=== PATIENT | male | born 1970 | race Caucasian/White ===

== ENCOUNTER 2018-02-10 14:41 | Day surgery (SDC) | payer OTHER ==
[~2018-02-10] VITALS: Ht 185.4 cm; Wt 104.3 kg
[2018-02-10] MEDS ORDERED: AMIT25 PO (16:03)
== END 2018-02-10 21:25 | disposition home or self-care (01) ==
LOC: ER 14:41 → SURS 14:42 → ORSCMMR 14:42 → SURS 14:42 → ORSCMMR 21:25 → SURS 21:25
PROVIDERS: Surgery
PROC: 0KCR0ZZ Extirpation of Matter from Left Upper Leg Muscle, Open Approach (ICD-10-PCS; principal; 2018-02-10 16:00)
PROC: 0YQD0ZZ Repair Left Upper Leg, Open Approach (ICD-10-PCS; 2018-02-10 16:00)
DX: S71.142A Puncture wound with foreign body, left thigh, initial encounter (principal); Z98.890 Other specified postprocedural states; Z88.5 Allergy status to narcotic agent; W45.8XXA Other foreign body or object entering through skin, initial encounter
CPT/HCPCS: 73560-LT; 96374; 96375; 99285; J0690; J1100; J1170; J1885; J2060; J2250; J2405; J3010

== ENCOUNTER 2021-04-11 14:24 | Emergency (ER) | payer OTHER ==
[~2021-04-11] VITALS: Ht 195.6 cm; Wt 120.2 kg
[~2021-04-11 14:24] MED LIST changes: -ONDA4ODT MM; -Percocet 10-321 EACH PO
[2021-04-11 14:54] LABS: BASOPHILS ABSOLUTE AUTO 0.03 K/mm3 (0.00-0.23); BASOPHILS PERCENT AUTO 0 % (0-2); EOSINOPHILS ABSOLUTE AUTO 0.03 K/mm3 (0.00-0.68); EOSINOPHILS PERCENT AUTO 0 % (0-6); Hemoglobin 13.8 g/dL (13.5-17.5); IMMATURE GRAN ABSOLUTE AUTO 0.03 K/mm3 (0.00-0.10); IMMATURE GRAN PERCENT AUTO 0 % (0-1); LYMPHOCYTES PERCENT AUTO 9 % (21-46); MONOCYTES ABSOLUTE AUTO 1.46 K/mm3 (0.16-1.47); MONOCYTES PERCENT AUTO 15 % (4-13); Mean Corpuscular HGB 31.2 pg (26.0-34.0); Mean Corpuscular HGB Conc 34.5 g/dL (31.5-36.5); Mean Corpuscular Volume 91 fL (80-100); Mean Platelet Volume 9.3 fL (9.1-12.4); NEUTROPHILS ABSOLUTE AUTO 7.46 K/mm3 (1.96-9.15); NEUTROPHILS PERCENT AUTO 75 % (41-73); Platelet Count 270 K/mm3 (150-400); RDW Coefficient Variation 11.9 % (11.7-14.2); RDW Standard Deviation 39.5 fL (35.1-46.3); Red Blood Cell Count 4.42 M/mm3 (4.30-5.90); White Blood Cell Count 9.91 K/mm3 (4.00-11.30)
[2021-04-11 15:15] LABS: Alanine Aminotransfer (ALT/SGP 28 U/L (12-78); Albumin, Blood 3.8 g/dL (3.4-5.0); Alk Phos 102 U/L (50-136); Anion Gap 6 mmol/L (6-16); Aspartate Aminotrans (AST/SGOT 22 U/L (12-37); Bilirubin, Total 0.6 mg/dL (0.1-1.0); Blood Urea Nitrogen 14 mg/dL (8-24); Bun/Creatinine Ratio 13.6 (12.0-20.0); CO2, Blood 24 mmol/L (21-32); Calcium, Blood 8.5 mg/dL (8.5-10.1); Chloride, Blood 103 mmol/L (98-108); Creatinine, Blood 1.03 mg/dL (0.60-1.20); Globulin, Blood 3.8 g/dL (2.2-4.0); Glomerular Filtration Rate >60 (60-); Glucose, Blood 122 mg/dL (70-99); Potassium, Blood 3.9 mmol/L (3.5-5.5); Sodium, Blood 133 mmol/L (136-145); Total Protein, Blood 7.6 g/dL (6.4-8.2)
[2021-04-11] MEDS ORDERED: ONDA4ODT MM (16:40)
[2021-04-11] MEDS ORDERED: Percocet 10-321 EACH PO (16:40)
== END 2021-04-11 16:50 | disposition home or self-care (01) ==
LOC: ER 14:24
PROVIDERS: Emergency Medicine
DX: R51.9 Headache, unspecified (principal); R50.9 Fever, unspecified; Z88.6 Allergy status to analgesic agent; Z88.5 Allergy status to narcotic agent
CPT/HCPCS: 71045; 80053; 85025; 93005; 93010; 96374; 99285-25; J2405

== ENCOUNTER → 2021-04-11 | Outpatient (CLI) | payer OTHER ==
[~2021-04-11] MED LIST: AMIT25 PO; ONDA4ODT MM; Percocet 10-321 EACH PO
[2021-04-11 13:42] LABS: BASOPHILS ABSOLUTE AUTO 0.03 K/mm3 (0.00-0.23); BASOPHILS PERCENT AUTO 0 % (0-2); EOSINOPHILS ABSOLUTE AUTO 0.04 K/mm3 (0.00-0.68); EOSINOPHILS PERCENT AUTO 1 % (0-6); Hematocrit 39.4 % (37.0-53.0); Hemoglobin 13.8 g/dL (13.5-17.5); IMMATURE GRAN ABSOLUTE AUTO 0.02 K/mm3 (0.00-0.10); IMMATURE GRAN PERCENT AUTO 0 % (0-1); LYMPHOCYTES ABSOLUTE AUTO 0.71 K/mm3 (0.84-5.20); LYMPHOCYTES PERCENT AUTO 8 % (21-46); MONOCYTES ABSOLUTE AUTO 1.15 K/mm3 (0.16-1.47); MONOCYTES PERCENT AUTO 13 % (4-13); Mean Corpuscular HGB 31.5 pg (26.0-34.0); Mean Corpuscular Volume 90 fL (80-100); Mean Platelet Volume 9.4 fL (9.1-12.4); NEUTROPHILS ABSOLUTE AUTO 6.75 K/mm3 (1.96-9.15); NEUTROPHILS PERCENT AUTO 78 % (41-73); Platelet Count 259 K/mm3 (150-400); RDW Standard Deviation 39.7 fL (35.1-46.3); Red Blood Cell Count 4.38 M/mm3 (4.30-5.90)
[2021-04-11 13:51] LABS: Alanine Aminotransfer (ALT/SGP 29 U/L (12-78); Albumin, Blood 3.7 g/dL (3.4-5.0); Albumin/Globulin Ratio 0.9 (0.8-1.8); Alk Phos 99 U/L (40-126); Anion Gap 10 mmol/L (6-16); Aspartate Aminotrans (AST/SGOT 22 U/L (12-37); Bilirubin, Total 0.6 mg/dL (0.1-1.0); Blood Urea Nitrogen 14 mg/dL (8-24); Bun/Creatinine Ratio 12.8 (12.0-20.0); CO2, Blood 24 mmol/L (21-32); Calcium, Blood 8.6 mg/dL (8.5-10.1); Chloride, Blood 98 mmol/L (98-108); Creatinine, Blood 1.09 mg/dL (0.60-1.20); Glomerular Filtration Rate >60 (60-); Glucose, Blood 120 mg/dL (70-99); Potassium, Blood 4.1 mmol/L (3.5-5.5); Sodium, Blood 132 mmol/L (136-145); Total Protein, Blood 7.7 g/dL (6.4-8.2)
== END | disposition home or self-care (01) ==
LOC: LAB EV 13:38 → LAB SHORT 13:38
PROVIDERS: Physician Assistant Medical
DX: R11.0 Nausea (principal); R50.9 Fever, unspecified
CPT/HCPCS: 80053; 83605; 85025

== ENCOUNTER 2021-09-22 06:36 | Day surgery (SDC) | payer OTHER ==
[~2021-09-22] VITALS: Ht 195.6 cm; Wt 124.3 kg
[~2021-09-22 06:36] MED LIST changes: +AMIT50 PO; +Nexium40 MG PO; +ONDA4ODT MM; +Percocet 10-321 EACH PO
--- NOTE | 2021-09-22 08:50 | NUR ---
09/22/21 0849 Jas Hathaway 1 MG EPI ADDED TO EACH OF THE FIRST 3 BAGS OF LR PER ORDER FOR IRRIGATION.
== END 2021-09-22 11:10 | disposition home or self-care (01) ==
LOC: ORSCSDS 06:36
PROVIDERS: Orthopaedic Surgery
PROC: 0LS34ZZ Reposition Right Upper Arm Tendon, Percutaneous Endoscopic Approach (ICD-10-PCS; principal; 2021-09-22 08:00)
PROC: 0RNJ4ZZ Release Right Shoulder Joint, Percutaneous Endoscopic Approach (ICD-10-PCS; principal; 2021-09-22 08:00)
PROC: 0PB94ZZ Excision of Right Clavicle, Percutaneous Endoscopic Approach (ICD-10-PCS; principal; 2021-09-22 08:00)
PROC: 0LQ14ZZ Repair Right Shoulder Tendon, Percutaneous Endoscopic Approach (ICD-10-PCS; principal; 2021-09-22 08:00)
DX: M75.111 Incomplete rotator cuff tear or rupture of right shoulder, not specified as traumatic (principal); M75.21 Bicipital tendinitis, right shoulder; M75.41 Impingement syndrome of right shoulder; M19.011 Primary osteoarthritis, right shoulder; I10 Essential (primary) hypertension; E78.5 Hyperlipidemia, unspecified; K21.9 Gastro-esophageal reflux disease without esophagitis; Z79.899 Other long term (current) drug therapy
CPT/HCPCS: C1713; J0171; J0690; J1100; J2250; J2370; J2405; J2704; J3010; J7120

== ENCOUNTER 2025-03-08 16:18 | Emergency (ER) | payer OTHER ==
[~2025-03-08] VITALS: Ht 195.6 cm; Wt 122.5 kg
[2025-03-08] MEDS ORDERED: FentaNYL Citrate 50 MCG/ML 2 ML Injection IV ONE ×3 (16:50→18:30)
[2025-03-08] MEDS ORDERED: [UNRECOGNIZED DRUG - CODE] PO (17:15)
[2025-03-08] MEDS ORDERED: Acetaminophen 500 MG Tab PO ONE (17:40)
[2025-03-08] MEDS ORDERED: HYDROmorphone HCl/Pf 1MG SYR IV ONE (17:45)
[2025-03-08] MEDS ORDERED: Ondansetron HCl 2 MG / ML 2ML Vial IV ONE (18:15)
[2025-03-08] MEDS ORDERED: Diazepam 5 MG / ML 2ML SYR IV ONE (19:15)
[2025-03-08] MEDS ORDERED: RX Prepack 6 Tabs Oxycodone 5mg UD ONE (19:20)
[2025-03-08] MEDS ORDERED: RX Prepack 2 Tabs Ondansetron ODT 4MG UD ONE ×2 (19:20→20:00)
[2025-03-08 20:00] VITALS: BP 142/99
[2025-03-10] MEDS ORDERED: Percocet 5-3251 EACH PO (09:41)
== END 2025-03-08 20:15 | disposition home or self-care (01) ==
LOC: ER 16:18
DX: S42.021A Displaced fracture of shaft of right clavicle, initial encounter for closed fracture (principal); Z88.6 Allergy status to analgesic agent; Z88.5 Allergy status to narcotic agent; Z79.899 Other long term (current) drug therapy; W18.30XA Fall on same level, unspecified, initial encounter; Y93.53 Activity, golf
CPT/HCPCS: 73030; 93005; 93010; 96374; 96375; 99283-25; A9270; J1171; J2405; J3010; J3360

== ENCOUNTER 2025-03-12 11:49 | Day surgery (SDC) | payer OTHER ==
[2025-03-12] VITALS (10 sets, daily range): BP systolic 132–162; BP diastolic 98–106
[~2025-03-12 11:49] MED LIST changes: +Bupivacaine 0.5% W/EPI 1:200000 SDV 30 ML Vial ONE; +Percocet 5-3251 EACH PO; +[UNRECOGNIZED DRUG - CODE] PO
[2025-03-12] MEDS ORDERED: Lactated Ringer's 1,000 ML IV SCH (11:50)
[2025-03-12] MEDS ORDERED: CeFAZolin Sodium 2,000 MG in NS 100 ML IV SCH (11:50)
[2025-03-12] MEDS ORDERED: CeFAZolin Sodium 3,000 MG in NS 100 ML IV SCH (11:55)
[2025-03-12] MEDS ORDERED: propofoL 0 ML IV ONE (11:58)
[2025-03-12] MEDS ORDERED: Ondansetron HCl 2 MG / ML 2ML Vial ONE ×2 (11:58→13:51)
[2025-03-12] MEDS ORDERED: Dexamethasone Sod Phos 10 MG/ML 1ML VIAL ONE ×2 (11:58→13:51)
[2025-03-12] MEDS ORDERED: FentaNYL Citrate 50 MCG/ML 2 ML Injection ONE ×2 (11:58→13:51)
[2025-03-12] MEDS ORDERED: Midazolam HCl 1MG / ML 2ML Vial ONE ×2 (11:58→13:16)
[2025-03-12] MEDS ORDERED: Bupivacaine HCl 0.25% 30 ML Injection ONE (11:58)
--- NOTE | 2025-03-12 12:11 | NUR ---
History, Chart, Medications and Allergies reviewed before start of procedure. Lungs clear T/O to Auscultation. Pre-Op teaching done. Pt verbalizes understanding. Patient confirms NPO status and agrees with scheduled surgery. Patient reports completing Chlorhexadine shower X2 prior to admission to hospital.
[2025-03-12] MEDS ORDERED: CeFAZolin Sodium 3,000 MG VIAL ONE (13:05)
[2025-03-12] MEDS ORDERED: propofoL 20 ML IV ONE ×2 (13:16→13:17)
--- NOTE | 2025-03-12 13:38 | NUR ---
TIME OUT AT 1325 FOR SUPRACLAVICULAR BLOCK PERFORMED BY DR. STRONG. PT TOLERATED WELL. O2 AND MONITOR IN PLACED. COMPLETE AT 1331
[2025-03-12] MEDS ORDERED: HYDROmorphone HCl/Pf 1MG SYR IV PRN (15:05)
[2025-03-12] MEDS ORDERED: Ondansetron HCl 2 MG / ML 2ML Vial IV PRN (15:05)
[2025-03-12] MEDS ORDERED: FentaNYL Citrate 50 MCG/ML 2 ML Injection IV PRN ×2 (15:05)
[2025-03-12] MEDS ORDERED: Morphine Sulfate 4 MG/1 ML Injection IV PRN (15:05)
[2025-03-12] MEDS ORDERED: Metoclopramide HCl 5MG / ML 2ML Vial IV PRN (15:05)
[2025-03-12] MEDS ORDERED: Albuterol 2.5 MG/3 ML VIAL INH PRN (15:05)
[2025-03-12] MEDS ORDERED: HYDROmorphone HCl/Pf 1MG SYR ONE (15:06)
[2025-03-12] MEDS ORDERED: Ketorolac Tromethamine 30mg Vial ONE (15:07)
[2025-03-12] MEDS ORDERED: Sugammadex Sodium 200 MG/2ML SDV (100 MG/ML) ONE (15:08)
--- NOTE | 2025-03-12 16:45 | NUR ---
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
== END 2025-03-12 23:00 | disposition home or self-care (01) ==
LOC: ORSCMMR 11:49 → ORD 12:30 → ORSCMMR 12:30
PROVIDERS: Orthopaedic Surgery
PROC: 0PS904Z Reposition Right Clavicle with Internal Fixation Device, Open Approach (ICD-10-PCS; principal; 2025-03-12 12:30)
DX: S42.021A Displaced fracture of shaft of right clavicle, initial encounter for closed fracture (principal); W01.0XXA Fall on same level from slipping, tripping and stumbling without subsequent striking against object, initial encounter; I10 Essential (primary) hypertension; K21.9 Gastro-esophageal reflux disease without esophagitis; Z79.899 Other long term (current) drug therapy
CPT/HCPCS: 73000; C1713; J0690; J1100; J1171; J1885; J2250; J2405; J2704; J3010; J7120